=== PATIENT | female | born 1985 | race Caucasian/White ===

== ENCOUNTER 2017-04-18 15:55 | Inpatient (IN) | payer MEDICARE, MEDICAID ==
[~2017-04-18] VITALS: Ht 157.5 cm; Wt 37.2 kg
[2017-04-18] MEDS ORDERED: ATIV1TAB7 PO (16:02)
[2017-04-18] MEDS ORDERED: CEPH500T PO (16:39)
[2017-04-18] MEDS ORDERED: CAFF200T PO (16:59)
[2017-04-18] MEDS ORDERED: ACET50TAOT PO (16:59)
[2017-04-18 17:05] LABS: MEAN CORPUSCULAR HEMOGLOBIN 31.7 pg (27.0-33.0); MEAN CORPUSCULAR HGB CONC 33.7 g/dl (32.0-36.5); RED CELL DISTRIBUTION WIDTH 12.5 % (11.5-14.5); WHITE BLOOD COUNT 5.6 K/mm3 (4.0-10.0)
[2017-04-18 17:12] LABS: CONTROL LINE HCG INT CTR LINE PRESENT
[2017-04-18 17:27] LABS: ALBUMIN 3.7 GM/DL (3.2-5.2); ALBUMIN/GLOBULIN RATIO 1.06 (1.00-1.93); ALKALINE PHOSPHATASE 77 U/L (45-117); ALT/SGPT 14 U/L (12-78); ANION GAP 9 MEQ/L (8-16); AST/SGOT 7 U/L (15-37); BILIRUBIN,DIRECT 0.1 MG/DL (0.0-0.2); BILIRUBIN,TOTAL 0.5 MG/DL (0.2-1.0); BLOOD UREA NITROGEN 17 MG/DL (7-18); CALCIUM LEVEL 8.4 MG/DL (8.5-10.1); CARBON DIOXIDE LEVEL 26 MEQ/L (21-32); CHLORIDE LEVEL 110 MEQ/L (98-107); CREATININE FOR GFR 0.57 MG/DL (0.55-1.02); GLOMERULAR FILTRATION RATE > 60.0 (>60); GLUCOSE, FASTING 81 MG/DL (70-105); POTASSIUM SERUM 3.9 MEQ/L (3.5-5.1); SODIUM LEVEL 145 MEQ/L (136-145); TOTAL PROTEIN 7.2 GM/DL (6.4-8.2)
[2017-04-18 18:27] LABS: METHADONE URINE NEGATIVE (NEGATIVE)
[2017-04-18 20:40] VITALS: BP 139/91
[2017-04-18] MEDS ORDERED: ACETAMINOPHEN TAB 650MG DOSE (2X325MG) PO PRN (22:30)
[2017-04-18] MEDS ORDERED: MOM 30ML SUSPENSION UDC PO PRN (22:30)
[2017-04-18] MEDS ORDERED: MAALOX 30 ML SUSP *UDC PO PRN (22:30)
[2017-04-19] MEDS: CEPHALEXIN 500 MG CAP PO SCH ×4 (00:51→21:22)
[2017-04-19 07:07] VITALS: BP 156/86
[2017-04-19] MEDS: NICOTINE 21MG/24HR 1 EA TRANSDERMAL TD SCH (09:00)
[2017-04-19 18:00] VITALS: BP 150/92
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
[2017-04-20 07:00] VITALS: BP 133/63
[2017-04-20] MEDS: NICOTINE 21MG/24HR 1 EA TRANSDERMAL TD SCH (08:28)
[2017-04-20] MEDS: CEPHALEXIN 500 MG CAP PO SCH ×3 (08:28→21:14)
[2017-04-20] MEDS ORDERED: hydrOXYzine 25 MG TAB PO PRN (11:00)
[2017-04-20 12:00] VITALS: BP 150/96
[2017-04-20] MEDS ORDERED: carBAMazepine XR 100 MG TAB PO ONE (12:00)
--- NOTE | 2017-04-20 12:03 | MHIPN ---
DATE: 04/20/2017 CHIEF COMPLAINT: Feels a bit better. SUBJECTIVE: Seen for followup, says feels anxious, but less depressed, says had a reasonable night. Appetite has been fair. Says has contacted her family members, some of them, but that her father was rather dismissive. Has been out of her room, engaging with others. MENTAL STATUS EXAMINATION: She is neat. She is cooperative. No agitation. No psychomotor retardation. She is coherent. Affect is relatively broad. Denies any suicidal thoughts at present, though is a bit vague on that at times. No firm plans. No homicidal ideas or intents. No evidence of any psychosis at present. Cognition grossly intact. Judgment and insight are compromised. ASSESSMENT: Bipolar type II disorder. PLAN: She opts for using Tegretol, for a mood stabilizer, she has gone through the printed information given and we discussed this. She will be started on Tegretol, at a lower dose, and titrated upwards. She has been encouraged to participate in activities in the unit. We will also put her on hydroxyzine temporarily, no more than 50 mg a day in divided doses, to help with anxiety. VITAL SIGNS: These are as listed. Blood pressure 133/63. Pulse 73. Temperature 98.8.
[2017-04-20 18:00] VITALS: BP 137/91
[2017-04-20] MEDS: NEOSPORIN TOP OINT 15GM TOP SCH (21:00)
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
[2017-04-21 06:43] VITALS: BP 147/72
[2017-04-21] MEDS: CEPHALEXIN 500 MG CAP PO SCH ×3 (08:49→20:17)
[2017-04-21] MEDS: NICOTINE 21MG/24HR 1 EA TRANSDERMAL TD SCH (08:50)
[2017-04-21] MEDS: NEOSPORIN TOP OINT 15GM TOP SCH ×2 (08:50→20:20)
[2017-04-21 12:03] VITALS: BP 126/69
[2017-04-21] MEDS ORDERED: LORazepam 1 MG TAB PO PRN (14:30)
[2017-04-21 18:00] VITALS: BP 136/82
--- NOTE | 2017-04-21 22:43 | MHIPNPDOC ---
[facility] Progress Note Progress Note DATE OF SERVICE: 04/21/17 HISTORY: She is 31 years old. She is single. She has a son who lives with the boy's father. The patient has a history of mood instability in the past. Has been diagnosed with bipolar disorder, has been admitted to inpatient psychiatry in the past. Also carries a diagnosis of posttraumatic stressdisorder (PTSD), borderline personality disorder. Was last here in 2004 and the discharge summary by Dr. Hdz is reviewed. Patient reports one of her previous providers used to give her Ativan because she doesn't have a substance abuse problem. She says it has helped her because it decreases her anxiety levels and prevents her from cutting/burning.this conventional underwriter has agreed to give her Ativan, her request is reasonable. Also got her started on Abilify 2.5 mgs PO QHS. Will increase it to 5 mgs. PO QHS in 2 days. Discussed it with her and tw explained it would help her with her impulsivity, to decrease the self mutilation and her bipolar depression. VITAL SIGNS: See below. NEW TEST RESULTS: N/A. CURRENT MEDICATIONS: See below. MENTAL STATUS EXAMINATION: Patient is a 31-year old female, who is alert, cooperative, good eye contact, pleasant, good hygiene. Speech: Is Coherent, goal directed. Language skills are Fair. Thought processes including: Intact. Thought content: Focused on her illness, guilty thoughts about her suicide attempt and about cutting. Abstract reasoning, and computation: Fair . Description of associations: Not loose. Description of abnormal or psychotic thoughts: Denies A/V hallucinations, denies thought delusions, denies SI/HI Judgment: Fair. Insight: Fair Orientation: Oriented x 3. Recent and remote memory: She can't remember many things before age 12. Attention span and concentration: fair. Language: Normal. Fund of knowledge: Fair Mood: Euthymic Affect: Congruent to mood DIAGNOSES: 1. Bipolar 2 disorder, depressed 2. Borderline Personality disorder. 3. PTSD. ASSESSMENT: Patient is very insightful about her situation, she is not suicidal , she regrets attempting to commit suicide, she feels guilty for inflicting pain to the people she loves but she had reached a breaking point when she tried to kill herself. She is very vulnerable, needs help to stop cutting and burning, with her impulsivity MANAGEMENT PLAN: Abilify 2.5 mgs. PO QHS and Ativan 1 mg Po Q6HP for anxiety/ agitation TIME SPENT: 40 minutes. Vital Signs Vital Signs Date Time Temp Pulse Resp B/P (MAP) Pulse Ox O2 Delivery O2 Flow Rate FiO2 04/21/17 18:00 98.8 68 16 136/82 (100) 04/20/17 11:12 Room Air 04/19/17 07:07 98 Current Medications Current Medications Acetaminophen (Tylenol Tab) 650 mg Q6HP PRN PO HEADACHE or DISCOMFORT; Start at 22:30; Stop 05/18/17 at 22:29 Al Hydrox/Mg Hydrox/Simethicone (Mylanta) 30 ml Q4HP PRN PO HEARTBURN/ INDIGESTION; Start 04/18/17 at 22:30; Stop 05/18/17 at 22:29 Aripiprazole (AbiLIFY) 2.5 mg QHS PO Last administered on 04/21/17 20:17; Start 04/21/17 at 21:00; Stop 05/21/17 at 20:59 Cephalexin Monohydrate (Keflex) 500 mg TID PO Last administered on 04/21/17 20 :17; Start 04/18/17 at 21:00; Stop 04/25/17 at 20:59 Home Med (Med Rec Complete!) ASDIRECTED XX ; Start 04/18/17 at 17:15; Stop at 17:15; Status DC Hydroxyzine HCl (Atarax) 25 mg Q8HP PRN PO ANXIETY Last administered on 08:49; Start 04/20/17 at 11:00; Stop 04/21/17 at 14:23; Status DC Lorazepam (Ativan) 1 mg Q6HP PRN PO ANXIETY Last administered on 04/21/17 20: 17; Start 04/21/17 at 14:30; Stop 04/28/17 at 14:29 Magnesium Hydroxide (Milk Of Magnesia) 30 ml DAILYPRN PRN PO CONSTIPATION; Start 04/18/17 at 22:30; Stop 05/18/17 at 22:29 Neomycin/ Polymyxin/ Bacitracin (Neosporin) bid TO POLANCO ON LOWER L... BID TOP Last administered on 04/21/17 20:20; Start 04/20/17 at 21:00; Stop 05/20/17 at 20:59 Nicotine (Nicoderm Cq 21mg) 1 patch DAILY TD Last administered on 04/21/17t 08: 50; Start 04/19/17 at 09:00; Stop 05/19/17 at 08:59 Allergies Coded Allergies: Latex (Verified Allergy, Intermediate, Hives, 04/18/17) Ondansetron (Verified Allergy, Unknown, 04/18/17) Sulfa Antibiotics (Verified Adverse Reaction, Mild, N/V, 04/18/17) RAMIRO WILLS MD Apr 21, 2017 22:43
[2017-04-22 06:36] VITALS: BP 134/85
[2017-04-22] MEDS: NICOTINE 21MG/24HR 1 EA TRANSDERMAL TD SCH (08:42)
[2017-04-22] MEDS: CEPHALEXIN 500 MG CAP PO SCH ×3 (08:43→20:54)
[2017-04-22] MEDS: NEOSPORIN TOP OINT 15GM TOP SCH ×2 (08:43→20:55)
[2017-04-22 12:00] VITALS: BP 133/69
[2017-04-22 18:00] VITALS: BP 142/94
--- NOTE | 2017-04-22 20:27 | MHIPNPDOC ---
[facility] Progress Note Progress Note DATE OF SERVICE: 04/22/17 HISTORY: She is 31 years old. She is single. She has a son who lives with the boy's father. The patient has a history of mood instability in the past. Has been diagnosed with bipolar disorder, has been admitted to inpatient psychiatry in the past. Also carries a diagnosis of posttraumatic stressdisorder (PTSD), borderline personality disorder. Was last here in 2004 and the discharge summary by Dr. Hdz is reviewed. Patient reports she took 1 mg. of Ativan last night when she felt the urge for cutting and she hasn't used any today, she doesn't have urges to cut or burn herself. She syas she slept well, took Abilify for the first time, and she hasn' t had negative side effects. She says she would like her son to visit her and this travel writer explained to her the [facility] is not exactly the most appropriate setting for an 11 year old son who, she says, is schizophrenic and was diagnosed not too many years ago and she says her son's father is schizophrenic too. I expressed this could be a negative experience for her son, he could become scared about visiting the [facility], it would be better for him not to come. She accepted this and said she could wait for her discharge to see her son. VITAL SIGNS: See below. NEW TEST RESULTS: N/A. CURRENT MEDICATIONS: See below. MENTAL STATUS EXAMINATION: Patient is a 31-year old female, who is alert, cooperative, good eye contact, pleasant, good hygiene. Speech: Is Coherent, goal directed. Language skills are Fair. Thought processes including: Intact. Thought content: Focused on her medications and her discharge Abstract reasoning, and computation: Fair . Description of associations: Good Description of abnormal or psychotic thoughts: Denies A/V hallucinations, denies thought delusions, denies SI/HI Judgment: improved Insight: Improved Orientation: Oriented x 3. Recent and remote memory: Gaps in her remote memory (age 12 and below). Recent memory is fair Attention span and concentration: fair. Language: Normal. Fund of knowledge: Fair Mood: Euthymic Affect: Congruent to mood DIAGNOSES: 1. Bipolar 2 disorder, depressed 2. Borderline Personality disorder. 3. PTSD. ASSESSMENT: Abilify was increased to 5 mgs. this afternoon, she has denied side effects from the 2.5 mgs. dose. She wants to be discharged and she has a plan to go and stay with her mother at her mother's house. After a couple of days, once she feels safe, she will go back to her house. She is motivated, she says she needs to be OK for her son and for herself. MANAGEMENT PLAN: Abilify 2.5 mgs. PO QHS and Ativan 1 mg Po Q6HP for anxiety/ agitation TIME SPENT: 30 minutes. Vital Signs Vital Signs Date Time Temp Pulse Resp B/P (MAP) Pulse Ox O2 Delivery O2 Flow Rate FiO2 04/22/17 18:00 98.9 78 16 142/94 (110) 04/20/17 11:12 Room Air 04/19/17 07:07 98 Current Medications Current Medications Acetaminophen (Tylenol Tab) 650 mg Q6HP PRN PO HEADACHE or DISCOMFORT; Start at 22:30; Stop 05/18/17 at 22:29 Al Hydrox/Mg Hydrox/Simethicone (Mylanta) 30 ml Q4HP PRN PO HEARTBURN/ INDIGESTION; Start 04/18/17 at 22:30; Stop 05/18/17 at 22:29 Aripiprazole (AbiLIFY) 2.5 mg QHS PO Last administered on 04/21/17 20:17; Start 04/21/17 at 21:00; Stop 04/22/17 at 14:37; Status DC Aripiprazole (AbiLIFY) 5 mg QHS PO ; Start 04/22/17 at 21:00; Stop 05/22/17 at 20:59 Cephalexin Monohydrate (Keflex) 500 mg TID PO Last administered on 04/22/17 16 :30; Start 04/18/17 at 21:00; Stop 04/25/17 at 20:59 Home Med (Med Rec Complete!) ASDIRECTED XX ; Start 04/18/17 at 17:15; Stop at 17:15; Status DC Hydroxyzine HCl (Atarax) 25 mg Q8HP PRN PO ANXIETY Last administered on 08:49; Start 04/20/17 at 11:00; Stop 04/21/17 at 14:23; Status DC Lorazepam (Ativan) 1 mg Q6HP PRN PO ANXIETY Last administered on 04/21/17 20: 17; Start 04/21/17 at 14:30; Stop 04/28/17 at 14:29 Magnesium Hydroxide (Milk Of Magnesia) 30 ml DAILYPRN PRN PO CONSTIPATION; Start 04/18/17 at 22:30; Stop 05/18/17 at 22:29 Neomycin/ Polymyxin/ Bacitracin (Neosporin) bid TO POLANCO ON LOWER L... BID TOP Last administered on 04/22/17 08:43; Start 04/20/17 at 21:00; Stop 05/20/17 at 20:59 Nicotine (Nicoderm Cq 21mg) 1 patch DAILY TD Last administered on 04/22/17 08: 42; Start 04/19/17 at 09:00; Stop 05/19/17 at 08:59 Allergies Coded Allergies: Latex (Verified Allergy, Intermediate, Hives, 04/18/17) Ondansetron (Verified Allergy, Unknown, 04/18/17) Sulfa Antibiotics (Verified Adverse Reaction, Mild, N/V, 04/18/17) RAMIRO WILLS MD Apr 22, 2017 20:27
[2017-04-23 06:45] VITALS: BP 141/90
[2017-04-23] MEDS: CEPHALEXIN 500 MG CAP PO SCH ×3 (08:30→21:27)
[2017-04-23] MEDS: NICOTINE 21MG/24HR 1 EA TRANSDERMAL TD SCH (08:30)
[2017-04-23] MEDS: NEOSPORIN TOP OINT 15GM TOP SCH ×2 (08:31→21:27)
[2017-04-23 12:14] VITALS: BP 138/78
[2017-04-23 18:34] VITALS: BP 138/85
[2017-04-23 21:00] VITALS: BP 130/86
--- NOTE | 2017-04-23 21:07 | MHIPNPDOC ---
[facility] Progress Note Progress Note DATE OF SERVICE: 04/23/17 HISTORY: She is 31 years old. She is single. She has a son who lives with the boy's father. The patient has a history of mood instability in the past. Has been diagnosed with bipolar disorder, has been admitted to inpatient psychiatry in the past. Also carries a diagnosis of posttraumatic stressdisorder (PTSD), borderline personality disorder. Was last here in 2004 and the discharge summary by Dr. Hdz is reviewed. Patient reports she tslept well last night, she has felt calmer, denied medication side effects from the 5 mgs of Abilify she took last night. She hasn' t felt any urges to cut or burn, she is motivated, thinking on her discharge because she wants to be with her son again. VITAL SIGNS: See below. NEW TEST RESULTS: N/A. CURRENT MEDICATIONS: See below. MENTAL STATUS EXAMINATION: Patient is a 31-year old female, who is dressed in her personal clothes, alert, cooperative, good eye contact, pleasant, good hygiene. Speech: Intact Language skills are Fair. Thought processes including: coherent, goal directed. Thought content: Focused on her medications and her discharge Abstract reasoning, and computation: Fair . Description of associations: Good Description of abnormal or psychotic thoughts: Denies A/V hallucinations, denies thought delusions, denies SI/HI Judgment: improved Insight: Improved Orientation: Oriented x 3. Recent and remote memory: Gaps in her remote memory (age 12 and below). Recent memory is fair Attention span and concentration: Good Language: Normal. Fund of knowledge: Fair Mood: Euthymic Affect: Congruent to mood DIAGNOSES: 1. Bipolar 2 disorder, depressed 2. Borderline Personality disorder. 3. PTSD. ASSESSMENT: Patient had a good response to medications, she has been participating and attending groups, her attitude has been pleasant, seems to be very insightful about her illness and the problems it has created in her life and how her problems have contributed to her illnesses. She is aware she needs to live and be healthy for her son, she wants to be a good example for him, wants to be compliant with treatment, be stable, doesn't want to . MANAGEMENT PLAN: Abilify 5 mgs. PO QHS and Ativan 1 mg Po Q6HP for anxiety/ agitation TIME SPENT: 30 minutes. Vital Signs Vital Signs Date Time Temp Pulse Resp B/P (MAP) Pulse Ox O2 Delivery O2 Flow Rate FiO2 04/23/17 18:34 98.0 81 16 138/85 (102) 04/20/17 11:12 Room Air 04/19/17 07:07 98 Current Medications Current Medications Acetaminophen (Tylenol Tab) 650 mg Q6HP PRN PO HEADACHE or DISCOMFORT; Start at 22:30; Stop 05/18/17 at 22:29 Al Hydrox/Mg Hydrox/Simethicone (Mylanta) 30 ml Q4HP PRN PO HEARTBURN/ INDIGESTION; Start 04/18/17 at 22:30; Stop 05/18/17 at 22:29 Aripiprazole (AbiLIFY) 2.5 mg QHS PO Last administered on 04/21/17 20:17; Start 04/21/17 at 21:00; Stop 04/22/17 at 14:37; Status DC Aripiprazole (AbiLIFY) 5 mg QHS PO Last administered on 04/22/17 20:54; Start 04/22/17 at 21:00; Stop 05/22/17 at 20:59 Cephalexin Monohydrate (Keflex) 500 mg TID PO Last administered on 04/23/17 15 :56; Start 04/18/17 at 21:00; Stop 04/25/17 at 20:59 Home Med (Med Rec Complete!) ASDIRECTED XX ; Start 04/18/17 at 17:15; Stop at 17:15; Status DC Hydroxyzine HCl (Atarax) 25 mg Q8HP PRN PO ANXIETY Last administered on 08:49; Start 04/20/17 at 11:00; Stop 04/21/17 at 14:23; Status DC Lorazepam (Ativan) 1 mg Q6HP PRN PO ANXIETY Last administered on 04/21/17 20: 17; Start 04/21/17 at 14:30; Stop 04/28/17 at 14:29 Magnesium Hydroxide (Milk Of Magnesia) 30 ml DAILYPRN PRN PO CONSTIPATION; Start 04/18/17 at 22:30; Stop 05/18/17 at 22:29 Neomycin/ Polymyxin/ Bacitracin (Neosporin) bid TO PLOANCO ON LOWER L... BID TOP Last administered on 04/23/17 08:31; Start 04/20/17 at 21:00; Stop 05/20/17 at 20:59 Nicotine (Nicoderm Cq 21mg) 1 patch DAILY TD Last administered on 04/23/17 08: 30; Start 04/19/17 at 09:00; Stop 05/19/17 at 08:59 Allergies Coded Allergies: Latex (Verified Allergy, Intermediate, Hives, 04/18/17) Ondansetron (Verified Allergy, Unknown, 04/18/17) Sulfa Antibiotics (Verified Adverse Reaction, Mild, N/V, 04/18/17) RAMIRO WILLS MD Apr 23, 2017 21:07
[2017-04-24 06:50] VITALS: BP 162/87
[2017-04-24] MEDS: NEOSPORIN TOP OINT 15GM TOP SCH (08:02)
[2017-04-24] MEDS: CEPHALEXIN 500 MG CAP PO SCH (08:03)
[2017-04-24] MEDS: NICOTINE 21MG/24HR 1 EA TRANSDERMAL TD SCH (08:03)
[2017-04-24] MEDS ORDERED: LORA1TAB12 PO (09:21)
[2017-04-24] MEDS ORDERED: CEPH500C PO (09:21)
[2017-04-24] MEDS ORDERED: TRIPOIN TOP (09:21)
[2017-04-24] MEDS ORDERED: ARIP5TA PO (09:21)
--- NOTE | 2017-04-24 15:06 | MHDSPDOC ---
[facility] Discharge Summary Discharge Summary DATE OF ADMISSION: Apr 18, 2017 at 19:26 DATE OF DISCHARGE: Apr 24, 2017 at 11:30 DISCHARGE DIAGNOSES: 1. Bipolar 2 disorder, depressed 2. Borderline Personality disorder. 3. PTSD. REASON FOR ADMISSION: She is 31 years old. She is single. She has a son who lives with the boy's father. The patient has a history of mood instability in the past. Has been diagnosed with bipolar disorder, has been admitted to inpatient psychiatry in the past. Also carries a diagnosis of posttraumatic stress disorder (PTSD), borderline personality disorder. Was last here in 2004 and the discharge summary by Dr. Hdz is reviewed. The patient has not been in any formal psychiatric care she says for several years, and had begun seeing a therapist periodically the last few weeks but is quite vague on this. Says she took an overdose a few days ago, overdose on caffeine, Ativan, and had felt suicidal, was feeling increasingly depressed, has been using over the counter caffeine pills to help with energy and overdosed on them. She says that she then went to her 's place, where her son lives, says wanted to hug her son "for the last time." She then slept it off and did not inform anyone until she saw her doctor a couple of days ago, who strongly suggested that she see her therapist, Marly at [facility]. After seeing her, was asked to come to the emergency room, was driven here by her sister, in view of the patient's current mood, recent suicide attempt. She says that she was initially mad that she had survived, but is now quite glad that she has. Says has been depressed for the last few weeks, then suggests possibly for longer, last few months and that sleep has been erratic. Appetite is fair. Says she tends to cut, cuts daily. Says has done that from a young age in order to feel numb, sometimes emotional relief. Had been doing that regularly and recently burnt herself to obtain the same sort of numbness, used a cigarette, burnt herself on the left leg. She has been given cephalexin for it. She just started it through primary care. Says also had periods where she feels elated in mood, more so than usual, diminished sleep, excessive energy. Says she is more sexually active during that time, talks faster, is full of ideas, cleans her house quite a bit. Says the change in her is noted by others, including friends. At the end of those few days, tends to crash for a few days. Says these periods of an elated mood do not tend to last more than 3 to 4 days. CONSULTANTS INVOLVED: None TREATMENT AND PROGRESS ON THE UNIT : Patient had a good response to medications. she expressed Ativan used to help her not cut because it lowers her anxiety levels and decreases the urge to cut or burn but she hasn't received that medication since she has been at [facility]. This com writer considered she could use it because she doesn't have a substance abuse problem and also recommended her to use Abilify because she has a history of bipolar depression and because it can help her control her impulses or her anger. she agreed to it and did well on the medications. She's insightful about her illness and she regrets attempting to kill herself. Now, she says, she knows she wants to live, she doesn't want to . She says she wants to be a good example for her son, because he also has been diagnosed with a mental illness, he has schizophrenia and she wants to show him that people with mental illnesses can have a better life if they comply with treatment. She says upon discharge she wants to go to her mother's house who is very understanding of her condition, before she goes back home, to be on the safe side. Last night, 04/23/17 she received her father' s visit, who she says, sees things in black and white and has never thought of her mental illness as an illness but more so of an attitude problem. She said she was able to handle the visit. She has been compliant with medications, compliant with [facility] rules, has engaged and participated in groups, has been interacting with peers and staff. HOSPITAL COURSE: As above DISCHARGE ASSESSMENT: Patient was not in danger to herself or others, she was not suicidal, not homicidal, not psychotic. she was safe to be discharged home and have Outpatient treatment. MENTAL STATUS EXAMINATION ON DISCHARGE: Patient is a 31-year old female, who is alert, cooperative, oriented x3, with good eye contact Speech is Goal directed, coherent Language skills are fair Thought processes including: Intact. Thought content: Focused on her son, how to be a good example for him.. Abstract reasoning, and computation: Fair Description of associations: Good. Description of abnormal or psychotic thoughts: Denies A/V hallucinations, denies thought delusions, denies SI/denies HI Judgment: Fair Insight: Fair. Orientation to Oriented x 3 Recent and remote memory: Intact Attention span and concentration: Fair Language: Normal. Fund of knowledge: Fair. Mood: Euthymic. Affect: Congruent to mood, full range, appropriate. MEDICATIONS ON DISCHARGE: Aripiprazole (AbiLIFY) 5 mg QHS PO for bipolar depression/impulse control Cephalexin Monohydrate (Keflex) 500 mg TID PO for infection Lorazepam (Ativan) 1 mg Q6HP PRN PO ANXIETY Neomycin/ Polymyxin/ Bacitracin (Neosporin) bid TO POLANCO ON LOWER L... BID TOP PLAN/FOLLOWUP ARRANGEMENTS: * Mental Health Appt 1 * [facility] * Established With This Provider Yes * Therapist ROSALIO * Date Apr 28, 2017 * Time 14:30 * * Additional information [address] [place] [address] Follow Up Care Education Label * Case Management * Care Coordination/Case Management/Supervision [facility] * Established With This Provider Yes * Director Of Diversity And Inclusion Minnie Cooper * * Additional information Will follow up with Minnie after discharge. Follow Up Care Education Label * Medical * Medical Follow Up [facility] W/ DR. CANDELARIO * Established With This Provider Yes * Date May 01, 2017 * Time 14:15 * The amount of time spent in the coordination of care for this patient was approximately 35 minutes. Vital Signs/I&Os Vital Signs Date Time Temp Pulse Resp B/P (MAP) Pulse Ox O2 Delivery O2 Flow Rate FiO2 04/24/17 06:50 98.5 67 16 162/87 (112) 04/20/17 11:12 Room Air 04/19/17 07:07 98 Medications Scheduled Aripiprazole (Aripiprazole) 5 Mg Tab, 5 MG PO QHS for BIPOLAR DEPRESSION, #10 Cephalexin Monohydrate (Cephalexin) 500 Mg Cap, 500 MG PO TID for INFECTION, #12 Neomycin/Polymyx/Bacitr (Triple Antibiotic 5-400-5000) 0.9 Gm/1 Pkt Oint, 1 DOSE TOP BID for POLANCO LOWER LEG AND FOREARM, #1 Scheduled PRN Acetaminophen (Acetaminophen) 500 Mg Tab, 1,000 MG PO for PAIN, (Reported) Caffeine (Caffeine) 200 Mg Tab, 1,000 MG PO TID PRN for DROWSINESS, (Reported) Lorazepam (Lorazepam) 1 Mg Tab, 1 MG PO Q6HP PRN for ANXIETY, #21 Allergies Coded Allergies: Latex (Verified Allergy, Intermediate, Hives, 04/18/17) Ondansetron (Verified Allergy, Unknown, 04/18/17) Sulfa Antibiotics (Verified Adverse Reaction, Mild, N/V, 04/18/17) RAMIRO WILLS MD Apr 24, 2017 15:06
== END 2017-04-24 11:30 | disposition home or self-care (01) | DRG 885 ==
LOC: M ED 15:55 → M ED INP 19:26 → M PSY 20:44
PROVIDERS: ADMIT Psychiatry & Neurology Psychiatry; ATTEND Psychiatry & Neurology Psychiatry
DX: F31.81 Bipolar II disorder (principal); F60.3 Borderline personality disorder; F43.10 Post-traumatic stress disorder, unspecified; Z88.2 Allergy status to sulfonamides; Z91.040 Latex allergy status; G47.33 Obstructive sleep apnea (adult) (pediatric)

== ENCOUNTER → 2019-05-27 | Outpatient (REF) ==
[~2019-05-27] MED LIST: ACET500T15 PO; ARIP1TAB6 PO; ATIV1TAB7 PO; CAFF200T PO; CEPH500C PO; CEPH500T PO; LORA1TAB12 PO; TRIPOIN5 TOP
== END ==
LOC: M LAB LCGH 15:32
PROVIDERS: ATTEND Surgery
DX: L92.9 Granulomatous disorder of the skin and subcutaneous tissue, unspecified (principal); K66.8 Other specified disorders of peritoneum